=== PATIENT | female | born 1990 ===

== ENCOUNTER 2018-06-15 17:58 | Emergency (ER) | payer OTHER ==
[~2018-06-15] VITALS: Ht 157.5 cm; Wt 67.6 kg
[2018-06-15 18:06] VITALS: BP 112/83; Ht 157.5 cm; Wt 67.6 kg
== END 2018-06-15 18:18 | disposition other institution (70) ==
LOC: ED 17:58
DX: Z02.89 Encounter for other administrative examinations (principal)